=== PATIENT | male | born 1995 | race Caucasian/White ===

== ENCOUNTER 2019-08-04 21:50 | Emergency (ER) | payer BC ==
--- NOTE | 2019-08-04 22:04 | EDM.PDOC ---
ED HPI GENERAL MEDICAL PROBLEM - General Stated Complaint: ITCHING SUNBURN Time Seen by Provider: 08/04/19 22:00 Source of Information: Reports: Patient History Limitations: Reports: No Limitations - History of Present Illness INITIAL COMMENTS - FREE TEXT/NARRATIVE: 23-year-old male who reports that he was at the [employer] today and he was exposed to the sun without sunscreen for approximately 4-5 hours. He noticed some redness and some burning in the area of his shoulders, chest and upper back and when he got home at about 6 PM tonight he noticed increased burning in the area and itching. The itching and the burning is gotten worse and he rates the discomfort as a 10/10. It is writing that according to the itching portion of which is what is causing him the most discomfort. He is having no difficulty breathing. No nausea or vomiting. No trouble swallowing. He tried Benadryl 75 mg orally at home. He also tried aloe vera gel topically, shaving cream topically and some vinegar topically without relief of his symptoms. No other associated signs or symptoms. There are no other modifying factors. 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.) ED ROS GENERAL - Review of Systems Review Of Systems: See Below Constitutional: Reports: No Symptoms HEENT: Reports: No Symptoms Respiratory: Reports: No Symptoms Cardiovascular: Reports: No Symptoms GI/Abdominal: Reports: No Symptoms : Reports: No Symptoms Musculoskeletal: Reports: No Symptoms Skin: Reports: Pruritis, Erythema (Sunburn to upper chest, shoulders and upper back) Neurological: Reports: No Symptoms Hematologic/Lymphatic: Reports: No Symptoms Immunologic: Reports: Other (Last tetanus immunization was greater than 5 years ago.) ED EXAM, GENERAL - Physical Exam Exam: See Below Exam Limited By: No Limitations General Appearance: Alert, WD/WN, Moderate Distress (Appears uncomfortable. He is nontoxic in appearance, however. No respiratory distress.) Eye Exam: Bilateral Eye: EOMI, Normal Inspection (Sclera are anicteric) Ears: Normal External Exam, Hearing Grossly Normal Ear Exam: Bilateral Ear: Auricle Normal Nose: Normal Inspection, Normal Mucosa, No Blood Throat/Mouth: Normal Inspection, Normal Oropharynx, Normal Voice, No Airway Compromise Head: Atraumatic, Normocephalic Neck: Normal Inspection, Supple, Non-Tender, Full Range of Motion Respiratory/Chest: No Respiratory Distress, Lungs Clear, Normal Breath Sounds, No Accessory Muscle Use, Chest Non-Tender Cardiovascular: Normal Peripheral Pulses, Regular Rate, Rhythm, No Murmur Peripheral Pulses: 2+: Radial (L), Radial (R), Dorsalis Pedis (L), Dorsalis Pedis (R) GI/Abdominal: Normal Bowel Sounds, Soft, Non-Tender Back Exam: Normal Inspection, Full Range of Motion Extremities: Normal Inspection, Normal Range of Motion, Non-Tender, No Pedal Edema, Normal Capillary Refill Neurological: Alert, Oriented, CN II-XII Intact, Normal Cognition, No Motor/ Sensory Deficits Skin Exam: Warm, Dry, Intact, Erythema (Moderate sunburn with some peeling of skin on the shoulders to the upper chest, both shoulder areas and upper back.) Course - Orders/Labs/Meds Orders: Active Orders 24 hr Category Date Time Status Vaccines to be Administered [RC] PER UNIT ROUTINE Care 08/04/19 22:16 Ordered Meds: Medications Discontinued Medications Generic Name Dose Route Start Last Admin Trade Name Freq PRN Reason Stop Dose Admin Diphtheria/Tetanus/Acell Pertussis 0.5 ml 08/04/19 22:16 Adacel IM 08/04/19 22:17 .ONCE ONE Hydroxyzine HCl 50 mg 08/04/19 22:16 Vistaril IM 08/04/19 22:17 ONETIME ONE Ibuprofen 800 mg 08/04/19 22:16 Motrin PO 08/04/19 22:17 ONETIME ONE - Re-Assessments/Exams Free Text/Narrative Re-Assessment/Exam: 08/04/19 22:20: Patient with moderate sunburn to the upper chest, shoulders and upper back he is in no respiratory distress. He was treated with Vistaril IM and ibuprofen orally and he was also given Tdap immunization to bring his tetanus immunization status up-to-date. I will give him a prescription of Vistaril for the itching. He can apply the burn gel to the area for comfort. He should also take ibuprofen 600-800 mg by mouth every 6-8 hours few days and then as needed. He should increase his fluid intake. He was advised to avoid any sun exposure for the next week and to use SPF 50 or greater sunscreen sun exposed areas in the future when he will be exposed to the sun. Precautions and reasons for return to the emergency department were discussed with the patient all he was in the emergency department and were detailed in his discharge instructions. Departure - Departure Time of Disposition: 22:35 Disposition: Home, Self-Care 01 Condition: Good (Stable) Clinical Impression: Sunburn - Discharge Information Prescriptions: hydrOXYzine pamoate [Vistaril] 50 mg PO Q6H PRN #20 cap PRN Reason: Itching Instructions: Sunburn, Adult, [id number] Additional Instructions: You have a moderate sunburn. You may apply aloe/burn gel to the sunburn areas as needed for comfort. Rest. You should increase your fluid intake. You should take ibuprofen 600-800 mg by mouth every 6-8 hours for the next 2-3 days and then as needed for pain. Medication as prescribed (Vistaril 50 mg). Avoid any sun exposure for the next week and in the future, use SPF 50 sunscreen or greater over sun exposed areas if you are going to be in the sun. Back to the emergency department for difficulty breathing, unrelenting vomiting, weakness or dizziness, high fever or any other concerning sign or symptom. Sepsis Event Note - Focused Exam Date Exam was Performed: 08/04/19 Time Exam was Performed: 22:17 - My Orders Last 24 Hours: My Active Orders 08/04/19 22:16 Vaccines to be Administered [RC] PER UNIT ROUTINE - Assessment/Plan Last 24 Hours: My Active Orders 08/04/19 22:16 Vaccines to be Administered [RC] PER UNIT ROUTINE
[2019-08-04] MEDS ORDERED: Diphtheria,Pertussis(Acell),Tetanus Vaccine 0.5 ML SDV IM ONE (22:16)
[2019-08-04] MEDS ORDERED: Ibuprofen 800 MG Tab PO ONE (22:16)
[2019-08-04] MEDS ORDERED: hydrOXYzine HCl 50 MG/ML SDV IM ONE (22:16)
== END 2019-08-04 22:50 | disposition home or self-care (01) ==
LOC: FB.ED 21:50
DX: L55.0 Sunburn of first degree (principal); Z88.8 Allergy status to other drugs, medicaments and biological substances; Z23 Encounter for immunization
CPT/HCPCS: 90471; 90715; 96372; 99282; A9270; J3410

== ENCOUNTER 2021-03-16 21:24 | Emergency (ER) | payer BC ==
--- NOTE | 2021-03-16 21:56 | EDM.PDOC ---
ED HPI GENERAL MEDICAL PROBLEM - General Chief Complaint: Respiratory Problem Time Seen by Provider: 03/16/21 21:40 Source of Information: Reports: Patient - History of Present Illness INITIAL COMMENTS - FREE TEXT/NARRATIVE: 25-year-old gentleman came to the emergency department due to severe and acute fatigue/malaise. He states that he had not been feeling good for a couple of days. He had a 10 mg marijuana brownie that he bought illegally in the state [facility]. He states that he uses marijuana on occasion. It is never affected him like this. His fiance states that when she came into the kitchen she found him laying on the floor and he obtunded. He was just very very weak and cannot stand. He complains of nauseousness and generalized body aches and pains. He has some mild nausea but states that the nausea is much better at this time. - Related Data Allergies Allergy/AdvReac Type Severity Reaction Status Date / Time "chemo drug" Allergy Rash Uncoded 03/16/21 22:18 Home Meds: Home Meds hydrOXYzine pamoate [Vistaril] 50 mg PO Q6H PRN #20 cap 08/04/19 [Rx] Doxycycline [Vibra-Tabs] 100 mg PO Q12HR #14 tab 03/17/21 [Rx] Past Medical History Hematologic History: Reports: Other (See Below) Other Hematologic History: hx of Leukemia when he was 16. Oncologic (Cancer) History: Reports: Leukemia (At age 16. 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 Patient is very lethargic and acts as if he is very weak. Proprioception is intact in bilateral upper and lower extremities and cranial nerves II through X are grossly intact. Exam Limited By: Altered Mental Status General Appearance: Lethargic Eye Exam: Bilateral Eye: EOMI, PERRL (Pupils are mildly dilated at 4 to 5 mm but are equal and reactive bilateral) Head: Atraumatic, Normocephalic Neck: Normal Inspection Respiratory/Chest: No Respiratory Distress, Lungs Clear Cardiovascular: Regular Rate, Rhythm GI/Abdominal: Normal Bowel Sounds, Soft, Tender, Other (Tenderness appears to be generalized tenderness) Back Exam: Other (Generalized tenderness with palpation throughout the back) Neurological: Alert, Oriented, CN II-XII Intact, Normal Cognition, Slow to Respond Psychiatric: Depressed Mood Skin Exam: Warm, Dry Course - Vital Signs Text/Narrative:: Review of labs shows mildly elevated white blood cell count with urinalysis concerning specifically for urethritis. Patient given 500 mg ceftriaxone IM and 100 mg doxycycline p.o. Chlamydia/gonorrhea have been ordered. This is empiric treatment for both cystitis and urethritis secondary to chlamydia/gonorrhea if positive. Patient was also given 1 L normal saline. He states that he feels much better at this time and is ready to go home. Last Recorded V/S: Last Vital Signs Temp 35.9 C L 03/16/21 21:26 Pulse 92 03/16/21 21:26 Resp 18 03/16/21 21:26 BP 115/66 03/16/21 21:26 Pulse Ox 99 03/16/21 21:26 - Orders/Labs/Meds Orders: Active Orders 24 hr Category Date Time Status CHLAMYDIA/GC AMPLIFICATION Urgent Lab 03/17/21 01:05 Ordered Labs: Laboratory Tests 03/16/21 03/16/21 03/16/21 Range/Units 21:50 21:50 21:55 WBC 12.4 H (3.2-10.1) x10-3/uL RBC 5.06 (3.90-5.90) x10(6)uL Hgb 14.9 (12.9-17.7) g/dL Hct 44.4 (38.3-50.1) % MCV 87.6 (80.8-98.7) fL MCH 29.5 (27.0-33.3) pg MCHC 33.6 (28.7-35.3) g/dL RDW 12.0 L (12.4-15.0) % Plt Count 228 (117-477) x10(3)uL MPV 7.1 (6.7-11.0) fL Neut % (Auto) 81.9 H (40.3-71.8) % Lymph % (Auto) 11.1 L (15.8-45.3) % [place] % (Auto) 6.1 (5.5-15.2) % Eos % (Auto) 0.5 (0.1-6.8) % Baso % (Auto) 0.4 (0.3-3.8) % Neut # (Auto) 10.2 H (1.7-6.9) x10-3/uL Lymph # (Auto) 1.4 (0.5-4.5) x10-3/uL [place] # (Auto) 0.8 (0.0-1.2) x10-3/uL Eos # (Auto) 0.1 (0.0-0.6) x10-3/uL Baso # (Auto) 0.0 (0.0-0.3) x10-3/uL Sodium 139 (135-145) mmol/L Potassium 3.8 (3.5-5.3) mmol/L Chloride 100 (100-110) mmol/L Carbon Dioxide 29 (21-32) mmol/L BUN 16 (7-18) mg/dL Creatinine 1.1 (0.70-1.30) mg/dL Est Cr Clr Drug Dosing TNP Estimated GFR (MDRD) > 60 (>60) BUN/Creatinine Ratio 14.5 (9-20) Glucose 160 H (80-116) mg/dL Calcium 9.2 (8.6-10.2) mg/dL Total Bilirubin 0.4 (0.1-1.3) mg/dL AST 20 (5-25) IU/L ALT 35 (12-36) U/L Alkaline Phosphatase 125 H (56-112) IU/L Total Protein 7.9 (6.0-8.0) g/dL Albumin 4.3 (3.5-5.2) g/dL Globulin 3.6 g/dL Albumin/Globulin Ratio 1.2 Urine Color (YELLOW) Urine Appearance (CLEAR) Urine pH (5.0-6.5) Ur Specific [place] (1.010-1.025) Urine Protein (NEGATIVE) mg/dL Urine Glucose (UA) (NORMAL) mg/dL Urine Ketones (NEGATIVE) mg/dL Urine Occult Blood (NEGATIVE) Urine Nitrite (NEGATIVE) Urine Bilirubin (NEGATIVE) Urine Urobilinogen (NEGATIVE) mg/dL Ur Leukocyte Esterase (NEGATIVE) Urine RBC (0-5) Urine WBC (0-5) Ur Squamous Epith Cells (NS,R,O) Urine Bacteria (NS) Urine Mucus (NS) Urine Opiates Screen (NEGATIVE) Ur Buprenorphine Scrn (NEGATIVE) Ur Oxycodone Screen (NEGATIVE) Urine Methadone Screen (NEGATIVE) Ur Propoxyphene Screen (NEGATIVE) Ur Barbiturates Screen (NEGATIVE) Ur Tricyclics Screen (NEGATIVE) Ur Phencyclidine Scrn (NEGATIVE) Ur Amphetamine Screen (NEGATIVE) U Methamphetamines Scrn (NEGATIVE) U Benzodiazepines Scrn (NEGATIVE) U Cocaine Metab Screen (NEGATIVE) U Marijuana (THC) Screen (NEGATIVE) Influenza Type A RNA Negative (NEGATIVE) Influenza Type B RNA Negative (NEGATIVE) SARS-CoV-2 RNA (ALEJANDRA) Negative (NEGATIVE) 03/17/21 03/17/21 Range/Units 00:25 00:25 WBC (3.2-10.1) x10-3/uL RBC (3.90-5.90) x10(6)uL Hgb (12.9-17.7) g/dL Hct (38.3-50.1) % MCV (80.8-98.7) fL MCH (27.0-33.3) pg MCHC (28.7-35.3) g/dL RDW (12.4-15.0) % Plt Count (117-477) x10(3)uL MPV (6.7-11.0) fL Neut % (Auto) (40.3-71.8) % Lymph % (Auto) (15.8-45.3) % [place] % (Auto) (5.5-15.2) % Eos % (Auto) (0.1-6.8) % Baso % (Auto) (0.3-3.8) % Neut # (Auto) (1.7-6.9) x10-3/uL Lymph # (Auto) (0.5-4.5) x10-3/uL [place] # (Auto) (0.0-1.2) x10-3/uL Eos # (Auto) (0.0-0.6) x10-3/uL Baso # (Auto) (0.0-0.3) x10-3/uL Sodium (135-145) mmol/L Potassium (3.5-5.3) mmol/L Chloride (100-110) mmol/L Carbon Dioxide (21-32) mmol/L BUN (7-18) mg/dL Creatinine (0.70-1.30) mg/dL Est Cr Clr Drug Dosing Estimated GFR (MDRD) (>60) BUN/Creatinine Ratio (9-20) Glucose (80-116) mg/dL Calcium (8.6-10.2) mg/dL Total Bilirubin (0.1-1.3) mg/dL AST (5-25) IU/L ALT (12-36) U/L Alkaline Phosphatase (56-112) IU/L Total Protein (6.0-8.0) g/dL Albumin (3.5-5.2) g/dL Globulin g/dL Albumin/Globulin Ratio Urine Color Yellow (YELLOW) Urine Appearance Slightly cloudy (CLEAR) Urine pH 5.0 (5.0-6.5) Ur Specific [place] 1.020 (1.010-1.025) Urine Protein Negative (NEGATIVE) mg/dL Urine Glucose (UA) Normal (NORMAL) mg/dL Urine Ketones Negative (NEGATIVE) mg/dL Urine Occult Blood Negative (NEGATIVE) Urine Nitrite Negative (NEGATIVE) Urine Bilirubin Negative (NEGATIVE) Urine Urobilinogen 1 H (NEGATIVE) mg/dL Ur Leukocyte Esterase Small H (NEGATIVE) Urine RBC 0-5 (0-5) Urine WBC 0-5 (0-5) Ur Squamous Epith Cells Occasional (NS,R,O) Urine Bacteria Few H (NS) Urine Mucus Moderate H (NS) Urine Opiates Screen Negative (NEGATIVE) Ur Buprenorphine Scrn Negative (NEGATIVE) Ur Oxycodone Screen Negative (NEGATIVE) Urine Methadone Screen Negative (NEGATIVE) Ur Propoxyphene Screen Negative (NEGATIVE) Ur Barbiturates Screen Negative (NEGATIVE) Ur Tricyclics Screen Negative (NEGATIVE) Ur Phencyclidine Scrn Negative (NEGATIVE) Ur Amphetamine Screen Negative (NEGATIVE) U Methamphetamines Scrn Negative (NEGATIVE) U Benzodiazepines Scrn Negative (NEGATIVE) U Cocaine Metab Screen Negative (NEGATIVE) U Marijuana (THC) Screen Positive H (NEGATIVE) Influenza Type A RNA (NEGATIVE) Influenza Type B RNA (NEGATIVE) SARS-CoV-2 RNA (ALEJANDRA) (NEGATIVE) Meds: Medications Discontinued Medications Generic Name Dose Route Start Last Admin Trade Name Freq PRN Reason Stop Dose Admin Ceftriaxone Sodium 500 mg 03/17/21 01:14 Ceftriaxone 500 Mg Vial IM 03/17/21 01:15 ONETIME ONE Doxycycline Hyclate 100 mg 03/17/21 01:14 Doxycycline 100 Mg Tab PO 03/17/21 01:15 ONETIME ONE Sodium Chloride 1,000 mls @ 999 mls/hr 03/16/21 22:34 03/16/21 23:00 Normal Saline IV 03/16/21 23:34 999 mls/hr .BOLUS ONE Administration Departure - Departure Time of Disposition: 01:17 Disposition: Home, Self-Care 01 Condition: Good Clinical Impression: Intoxication with marijuana, Urethritis, Elevated glucose, Family history of type 2 diabetes mellitus in mother - Discharge Information *PRESCRIPTION DRUG MONITORING PROGRAM REVIEWED*: Not Applicable *COPY OF PRESCRIPTION DRUG MONITORING REPORT IN PATIENT ADIA: Not Applicable Prescriptions: Doxycycline [Vibra-Tabs] 100 mg PO Q12HR #14 tab Instructions: Hyperglycemia, [id number], Urethritis, Adult, Cannabis Use Disorder Referrals: Soledad Martin NP [Primary Care Provider] - Forms: ED Department Discharge Additional Instructions: Patient strongly encouraged to follow-up and make sure that he knows the results of his chlamydia/gonorrhea test. Patient strongly encouraged to follow-up with primary care physician for diagnosis and treatment of potential diabetes mellitus type 2. Patient strongly encouraged to take doxycycline as directed until completed and to make sure he gets to the pharmacy so that he can continue his prescription tomorrow/later today. Patient strongly encouraged to drink plenty of water. Sepsis Event Note (ED) - Focused Exam Vital Signs: Vital Signs Temp Pulse Resp BP Pulse Ox 03/16/21 21:26 35.9 C L 92 18 115/66 99 - My Orders Last 24 Hours: My Active Orders 03/17/21 01:05 CHLAMYDIA/GC AMPLIFICATION Urgent - Assessment/Plan Last 24 Hours: My Active Orders 03/17/21 01:05 CHLAMYDIA/GC AMPLIFICATION Urgent
[2021-03-16] MEDS ORDERED: Sodium Chloride 0.9% 1,000 ML IV ONE (22:34)
[2021-03-16 22:52] LABS: CORONAVIRUS COVID-19 NAA NEGATIVE (NEGATIVE)
[2021-03-17] MEDS ORDERED: Doxycycline 100 MG Tab PO ONE (01:14)
[2021-03-17] MEDS ORDERED: cefTRIAXone 500 MG Vial IM ONE (01:14)
[2021-03-21 13:10] LABS: CHLAMYDIA TRACHOMATIS, NAA Negative (Negative); NEISSERIA GONORRHOEAE, NAA Negative (Negative)
== END 2021-03-17 01:45 | disposition home or self-care (01) ==
LOC: FB.ED 21:24
DX: N34.2 Other urethritis (principal); F12.929 Cannabis use, unspecified with intoxication, unspecified; Z88.8 Allergy status to other drugs, medicaments and biological substances; Z20.822 Contact with and (suspected) exposure to COVID-19
CPT/HCPCS: 0240U; 36415; 80053; 80307; 81001; 85025; 87491; 87591; 96372; 99283; A9270; J0696; J7030